=== PATIENT | female | born 1985 | race Caucasian/White ===

== ENCOUNTER 2018-06-09 20:48 | Emergency (ER) | payer MEDICAID, OTHER ==
--- NOTE | 2018-06-09 21:25 | EDPHY ---
General Time Seen by Provider: 06/09/18 21:14 Narrative: CHIEF COMPLAINT: Abdominal pain, rib pain HISTORY OF PRESENT ILLNESS: Patient presents by private vehicle with her friend with complaints of left upper quadrant abdominal pain left lower rib pain. She notes pain over the past 2-3 weeks with worsening of the past 2 days. It is associated with some bloating, itching and increased appetite. She has no nausea. No vomiting. No fever chills. It is worse with palpation of the area and movement. Also worse when she takes a deep breath and described "it clicks when I breathe deep." She has no trauma or injury. No constipation or diarrhea. No bloody stools. No previous incidence of this. She does have a history of hypothyroid, for which she takes [place] Thyroid. 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 She has no other associated complaints or modifying factors. REVIEW OF SYSTEMS: 10 systems were reviewed and negative with the exception of the elements mentioned in the history of present illness. PCP: [facility] SPECIALISTS: None PAST MEDICAL HISTORY: Hypothyroid PAST SURGICAL HISTORY: No surgical history SOCIAL HISTORY: Nonsmoker. Lives independently. Originally from [place]. FAMILY HISTORY: Noncontributory EXAMINATION: Vitals: Triage VS reviewed General Appearance: Alert, no distress. Well appearing. Head: normocephalic, atraumatic Eyes: Pupils equal and round, no conjunctival pallor or injection ENT, Mouth: Mucous membranes moist Neck: Normal inspection, supple, non-tender Respiratory: Lungs are clear to auscultation. No wheezing, rhonchi or crackles. There is tenderness to the left lower costal margin in the mid axillary plain. Cardiovascular: Regular rate and rhythm. No murmur. Gastrointestinal: Abdomen is soft and nondistended. There is mild tenderness in left upper quadrant without tympany, rigidity or guarding. Bowel sounds present all 4 quadrants. No CVA tenderness. Back: non-tender, no bony abnormalities Neurological: A&O, nonfocal, normal gait Skin: Warm and dry, no rash. No lesions to the palms of the hands of the fingernails. Extremities: Nontender, no pedal edema Psychiatric: Mood and affect normal DIFFERENTIAL DIAGNOSES: Including but not limited to hypothyroid, rib sprain, rib fracture, splenomegaly , colitis, diverticulitis, pancreatitis, gastritis MDM: 9:25 p.m. Left lower rib pain and left upper quadrant abdominal pain that is reproducible. It is also worse with inspiration and movement. No chest pain or shortness of breath. No fever. She does take armour thyroid. Her abdominal exam does reveal mild tenderness left upper quadrant but no guarding, tympany rigidity. I have ordered x-rays of the ribs and abdomen. Laboratory studies be obtained. IV has been established. She is in no acute distress vital signs stable. 9:45 p.m. XR read by radiologist as obstipation vs. partial SBO. I have ordered CT scan of the pelvis to delineate. Patient has consented to this. Her laboratory studies are pending. 10:44 p.m. Notified by radiologist Dr. Allen. We discussed the CT abdomen and pelvis findings. 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 10:50 p.m. Case discussed with Dr. Bella. We had a lengthy discussion regarding the CT scan. He reviewed the CT images himself. He recommends 3 things. First he recommends an enema consisting of 1500 mL of soap suds with 2 Fleet's enema. Second, he recommends magnesium citrate by mouth. Third, he recommend Suprep Rx for completion of constipation treatment. He further recommends the patient follow up with a small bowel follow-through in the next week. I presented all these options to the patient and she has declined to have the enema here. She states that she would like to go home and try Fleet's enemas [id number]. We discussed risks, benefits and alternatives and she is willing to assume the risk. She knows that if she goes home to try this with [id number] medication she may fail. She knows that she may after return to the emergency department and that she risks worsening of her scenario. She is comfortable this soon this risk, I do feel she the has the ability to make this decision and she will be discharged in stable condition. SUPERVISION: Patient was independently examined, but I discussed the case with my secondary supervising physician Dr. Ferrara CONSULTATION: General surgery, Dr. Bella by telephone - History Smoking Status: Never smoked - Objective Vital Signs: Initial Vital Signs Heart Rate 64 06/09/18 20:51 Respiratory Rate 18 06/09/18 20:51 O2 Sat (%) 97 06/09/18 20:51 O2 Delivery Mode Room Air Allergies/Adverse Reactions: No Known Allergies Allergy (Unverified 06/09/18 20:50) Home Medications: Medication Instructions Recorded ARMOUR THYROID 06/09/18 Laboratory Results: Laboratory Results 06/09/18 21:00 06/09/18 21:00 Medications Given: Discontinued Medications Sodium Chloride (Ns) 1,000 mls @ 0 mls/hr IV EDNOW ONE; Wide Open PRN Reason: Protocol Stop: 06/09/18 21:50 Last Admin: 06/09/18 21:54 Dose: 1,000 mls Departure - Departure Disposition: Home, Routine, Self-Care Clinical Impression: Obstipation Abdominal pain Qualifiers: Abdominal location: generalized Qualified Code(s): R10.84 - Generalized abdominal pain Condition: Good Instructions: Acute Abdominal Pain (ED), Obstipation (ED) Additional Instructions: 1. Fleet's enemas [id number] x2 2. Magnesium citrate [id number] x1 3. Suprep as prescribed starting tomorrow morning. You will need to get this at a pharmacy. 4. Return to emergency department if your unsuccessful in having a bowel movement. 5. Return to emergency department if he began vomiting or have any worsening abdominal pain or fever 6. Follow up with general surgeon outpatient Referrals: James Schafer MD [Medical Doctor] - As per Instructions Physician,Emergency DepMD viviane [Medical Doctor] - As per Instructions (As directed under discharge instructions)
[2018-06-09 21:33] LABS: PLATELET COUNT 237 10^3/uL (150-400)
[2018-06-09] MEDS ORDERED: NS 1,000 ML IV ONE (21:49)
[2018-06-09] MEDS ORDERED: IOPAMIDOL (ISOVUE-300) 100 ML BTL ONE (21:53)
[2018-06-09 23:28] VITALS: BP 130/92
== END 2018-06-09 23:28 | disposition home or self-care (01) ==
DX: K59.00 Constipation, unspecified (principal); R10.84 Generalized abdominal pain; I87.1 Compression of vein; E86.9 Volume depletion, unspecified; E03.9 Hypothyroidism, unspecified
CPT/HCPCS: Q9967

== ENCOUNTER 2018-07-18 20:51 | Emergency (ER) | payer MEDICAID ==
--- NOTE | 2018-07-18 21:06 | EDPHY ---
H & P Stated Complaint: upper mid abd pain and cramping causing SOB Time Seen by Provider: 07/18/18 21:05 HPI/ROS: HPI CHIEF COMPLAINT: Abdominal pain HISTORY OF PRESENT ILLNESS: 33-year-old female, presents emergency room with epigastric abdominal pain. States rather severe today. It is getting better however she developed pain and describes it as 7/10. It started shortly after she ate. She states around 5:00 p.m. She ate a large amount of knots in a protein bar and this caused her great epigastric discomfort. Associated nausea but no vomiting. States the pain was so bad very crampy coming in waves mainly in her epigastric no take her breath away. Denies chest pain. Main area of discomfort epigastric. No vomiting. No fever. 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 She did follow up with GI on outpatient basis. Due to get an EGD. Nonradiating. Past Medical History: Thyroid disease Past Surgical History: Denies significant surgical history Social History: Denies drugs alcohol tobacco daily Family History: Noncontributory ROS REVIEW OF SYSTEMS: 10 Systems were reviewed and negative with the exception of the elements mentioned in the history of present illness. Exam Constitutional nontoxic no acute distress triage nursing summary reviewed, vital signs reviewed, awake/alert. Eyes normal conjunctivae and sclera, EOMI, PERRLA. HENT normal inspection, atraumatic, moist mucus membranes, no epistaxis, neck supple/ no meningismus, no raccoon eyes. Respiratory clear to auscultation bilaterally, normal breath sounds, no respiratory distress, no wheezing. Cardiovascular rate normal, regular rhythm, no murmur, no edema, distal pulses normal. Gastrointestinal mild tender palpation epigastric reproducible on exam, however no peritoneal signs, no rebound, no guarding, normal bowel sounds, no distension, no pulsatile mass. Genitourinary no CVA tenderness. Musculoskeletal no midline vertebral tenderness, full range of motion, no calf swelling, no tenderness of extremities, no meningismus, good pulses, neurovascularly intact. Skin pink, warm, & dry, no rash, skin atraumatic. Neurologic awake, alert and oriented x 3, AAOx3, moves all 4 extremities equally, motor intact, sensory intact, CN II-XII intact, normal cerebellar, normal vision, normal speech. Psychiatric normal mood/affect. Heme/Lymph/Immune no lymphadenopathy. Differential Diagnosis: Differential diagnosis includes but is not limited to and in no particular order: Bowel obstruction, appendicitis, gallbladder disease, diverticulitis, colitis, enteritis, perforated viscus, gastritis, GERD , esophagitis, urinary tract infection, pyelonephritis, kidney stones Medical Decision Making: Plan for this patient IV establishment IV fluid bolus , Dilaudid for pain control, CT scan abdomen pelvis with IV contrast help delineate her abdominal pain, lactic acid, troponin, basic electrolytes and re- evaluate. Re-evaluation: 2127: Patient is declining the IV Dilaudid. CT scan abdomen pelvis with IV contrast called to me by Dr. Hernandez. No acute inflammatory process mild constipation seen. No free air no free fluid. Additionally possible enteritis fluid-filled distal ileum. Labs reviewed. Labs are normal no high white count, no electrolyte disturbance, urinalysis unremarkable. CT scan results reviewed. 2300 I did go re-evaluate the patient she is feeling much better. She denies any acute pain. States he feels much better would like to go home. P.o. Challenge in progress. She has not any vomiting here. Her CT scan previously showed nutcracker, SMA in aorta with duodenum transverse however the CT scan today did not reveal that. 230 re-evaluation given that the patient is feeling much better without any significant abdominal pain fever vomiting or no ongoing pain and re-examination abdomen is soft nontender the patient would like to go home. She p.o. Challenge well without any discomfort or vomiting. I do recommend she follows up with GI. I do recommend she refrain from eating large amounts of nuts at this time, as this may of caused her pain. Additionally discussed return precautions she understands return emergency room if she develops worsening abdominal pain, fever, vomiting. Follow up with GI. Return if worse. 2326: Patient was able to tolerate p.o. Without any vomiting or abdominal discomfort abdominal pain. She would like to go home. I discussed return precautions with her return emergency room if worsening abdominal pain fever vomiting she is comfortable this plan CT scan results given to the patient. Recommend bland diet over the next 48 hr. And then advance diet slowly. Return if worse. She is comfortable this plan. Source: Patient - Personal History LMP (Females 10-55): 22-28 Days Ago Current Tetanus/Diphtheria Vaccine: Yes Current Tetanus Diphtheria and Acellular Pertussis (TDAP): Yes - Medical/Surgical History Hx Asthma: No Hx Chronic Respiratory Disease: No Hx Diabetes: No Hx Cardiac Disease: No Hx Renal Disease: No Hx Cirrhosis: No Hx Alcoholism: No Hx HIV/AIDS: No Hx Splenectomy or Spleen Trauma: No Other PMH: thyroid, Kryptopyrroluria - Social History Smoking Status: Never smoked Constitutional: Initial Vital Signs Temperature (C) 36.5 C 07/18/18 20:52 Heart Rate 70 07/18/18 20:52 Respiratory Rate 18 07/18/18 20:52 Blood Pressure 112/79 07/18/18 20:52 O2 Sat (%) 99 07/18/18 20:52 O2 Delivery Mode Room Air Allergies/Adverse Reactions: No Known Allergies Allergy (Verified 07/18/18 20:55) Home Medications: Medication Instructions Recorded ARMOUR THYROID 06/09/18 Medical Decision Making - Diagnostics Imaging Results: Imaging Impressions Abdomen CT 07/18/18 21:26 Impression: 1. Increase in fluid distention of the stomach, without definite evidence of obstruction. 2. Fluid distention of the ileum, which can be seen with enteritis but is nonspecific. 3. Moderate stool in the colon, improved. 4. Additional findings as above. Findings discussed with Abhi Ferrara MD 07/18/2018 at 22:23. - Data Points Laboratory Results: Laboratory Results 07/18/18 21:10 07/18/18 21:10 07/18/18 07/18/18 07/18/18 22:30 21:27 21:10 WBC RBC Hgb Hct MCV MCH MCHC RDW Plt Count MPV Neut % (Auto) Lymph % (Auto) Grant % (Auto) Eos % (Auto) Baso % (Auto) Nucleat RBC Rel Count Absolute Neuts (auto) Absolute Lymphs (auto) Absolute Monos (auto) Absolute Eos (auto) Absolute Basos (auto) Absolute Nucleated RBC Immature Gran % Immature Gran # PT INR APTT VBG Lactic Acid Sodium Potassium Chloride Carbon Dioxide Anion Gap BUN Creatinine Estimated GFR Glucose Calcium Total Bilirubin Conjugated Bilirubin Unconjugated Bilirubin AST ALT Alkaline Phosphatase POC Troponin I 0.01 ng/mL ng/mL (0.00-0.08) Total Protein Albumin Lipase Beta HCG, Qual NEGATIVE Urine Color YELLOW Urine Appearance CLEAR Urine pH 7.0 (5.0-7.5) Ur Specific [place] 1.026 (1.002-1.030) Urine Protein NEGATIVE (NEGATIVE) Urine Ketones NEGATIVE (NEGATIVE) Urine Blood NEGATIVE (NEGATIVE) Urine Nitrate NEGATIVE (NEGATIVE) Urine Bilirubin NEGATIVE (NEGATIVE) Urine Urobilinogen NEGATIVE EU EU (0.2-1.0) Ur Leukocyte Esterase NEGATIVE (NEGATIVE) Urine Glucose NEGATIVE (NEGATIVE) Ethyl Alcohol 07/18/18 07/18/18 07/18/18 21:10 21:10 21:10 WBC 7.34 10^3/uL 10^3/uL (3.80-9.50) RBC 4.49 10^6/uL 10^6/uL (4.18-5.33) Hgb 14.3 g/dL g/dL (12.6-16.3) Hct 42.8 % % (38.0-47.0) MCV 95.3 fL fL (81.5-99.8) MCH 31.8 pg pg (27.9-34.1) MCHC 33.4 g/dL g/dL (32.4-36.7) RDW 12.0 % % (11.5-15.2) Plt Count 216 10^3/uL 10^3/uL (150-400) MPV 10.7 fL fL (8.7-11.7) Neut % (Auto) 79.8 % H % (39.3-74.2) Lymph % (Auto) 13.9 % L % (15.0-45.0) Grant % (Auto) 5.4 % % (4.5-13.0) Eos % (Auto) 0.4 % L % (0.6-7.6) Baso % (Auto) 0.4 % % (0.3-1.7) Nucleat RBC Rel Count 0.0 % % (0.0-0.2) Absolute Neuts (auto) 5.85 10^3/uL 10^3/uL (1.70-6.50) Absolute Lymphs (auto) 1.02 10^3/uL 10^3/uL (1.00-3.00) Absolute Monos (auto) 0.40 10^3/uL 10^3/uL (0.30-0.80) Absolute Eos (auto) 0.03 10^3/uL 10^3/uL (0.03-0.40) Absolute Basos (auto) 0.03 10^3/uL 10^3/uL (0.02-0.10) Absolute Nucleated RBC 0.00 10^3/uL 10^3/uL (0-0.01) Immature Gran % 0.1 % % (0.0-1.1) Immature Gran # 0.01 10^3/uL 10^3/uL (0.00-0.10) PT 13.5 SEC SEC (12.0-15.0) INR 1.01 (0.83-1.16) APTT 25.8 SEC SEC (23.0-38.0) VBG Lactic Acid Sodium 138 mEq/L mEq/L (135-145) Potassium 3.7 mEq/L mEq/L (3.5-5.2) Chloride 105 mEq/L mEq/L (97-110) Carbon Dioxide 23 mEq/l mEq/l (22-31) Anion Gap 10 mEq/L mEq/L (6-14) BUN 15 mg/dL mg/dL (7-23) Creatinine 0.9 mg/dL mg/dL (0.6-1.0) Estimated GFR > 60 Glucose 79 mg/dL mg/dL (70-100) Calcium 9.4 mg/dL mg/dL (8.5-10.4) Total Bilirubin 0.5 mg/dL mg/dL (0.1-1.4) Conjugated Bilirubin 0.4 mg/dL mg/dL (0.0-0.5) Unconjugated Bilirubin 0.1 mg/dL mg/dL (0.0-1.1) AST 43 IU/L IU/L (14-46) ALT 51 IU/L IU/L (9-52) Alkaline Phosphatase 96 IU/L IU/L (38-126) POC Troponin I Total Protein 7.5 g/dL g/dL (6.3-8.2) Albumin 4.9 g/dL g/dL (3.5-5.0) Lipase 145 IU/L IU/L (23-300) Beta HCG, Qual Urine Color Urine Appearance Urine pH Ur Specific [place] Urine Protein Urine Ketones Urine Blood Urine Nitrate Urine Bilirubin Urine Urobilinogen Ur Leukocyte Esterase Urine Glucose Ethyl Alcohol < 10 mg/dL mg/dL (0-10) 07/18/18 21:10 WBC RBC Hgb Hct MCV MCH MCHC RDW Plt Count MPV Neut % (Auto) Lymph % (Auto) Grant % (Auto) Eos % (Auto) Baso % (Auto) Nucleat RBC Rel Count Absolute Neuts (auto) Absolute Lymphs (auto) Absolute Monos (auto) Absolute Eos (auto) Absolute Basos (auto) Absolute Nucleated RBC Immature Gran % Immature Gran # PT INR APTT VBG Lactic Acid 2.0 mmol/L mmol/L (0.7-2.1) Sodium Potassium Chloride Carbon Dioxide Anion Gap BUN Creatinine Estimated GFR Glucose Calcium Total Bilirubin Conjugated Bilirubin Unconjugated Bilirubin AST ALT Alkaline Phosphatase POC Troponin I Total Protein Albumin Lipase Beta HCG, Qual Urine Color Urine Appearance Urine pH Ur Specific [place] Urine Protein Urine Ketones Urine Blood Urine Nitrate Urine Bilirubin Urine Urobilinogen Ur Leukocyte Esterase Urine Glucose Ethyl Alcohol Medications Given: Discontinued Medications Hydromorphone HCl (Dilaudid) 1 mg IVP EDNOW ONE Stop: 07/18/18 21:08 Last Admin: 07/18/18 21:17 Dose: Not Given Sodium Chloride (Ns) 1,000 mls @ 0 mls/hr IV EDNOW ONE; Wide Open PRN Reason: Protocol Stop: 07/18/18 21:08 Last Admin: 07/18/18 21:14 Dose: 1,000 mls Ondansetron HCl (Zofran) 4 mg IVP EDNOW ONE Stop: 07/18/18 21:08 Last Admin: 07/18/18 21:17 Dose: Not Given Point of Care Test Results: Chemistry 07/18/18 21:27 POC Troponin I 0.01 ng/mL ng/mL (0.00-0.08) Departure - Departure Disposition: Home, Routine, Self-Care Clinical Impression: Abdominal pain Qualifiers: Abdominal location: epigastric Qualified Code(s): R10.13 - Epigastric pain Condition: Good Instructions: Acute Abdominal Pain (ED) Additional Instructions: 1. [place] diet over the next 24 hr 2. Continue stool softeners as there is some mild constipation seen on her CT scan. 3. Return if worsening abdominal pain fever or vomiting 4. Return if worsening pain 5. Please follow up with your dining room helper. 6. Recommend you get an endoscopy. Referrals: FATEMEH LOVE [Primary Care Provider] - As per Instructions Ethan Narayanan MD [Medical Doctor] - As per Instructions
[2018-07-18] MEDS ORDERED: NS 1,000 ML IV ONE (21:07)
[2018-07-18] MEDS ORDERED: ONDANSETRON 4 MG/2 ML VIAL IVP ONE (21:07)
[2018-07-18] MEDS ORDERED: HYDROmorphONE/DILAUDID 2 MG/ML INJ IVP ONE (21:07)
[2018-07-18 21:25] LABS: PLATELET COUNT 216 10^3/uL (150-400)
[2018-07-18] MEDS ORDERED: IOPAMIDOL (ISOVUE 370) 100 ML BTL IV ONE (21:31)
[2018-07-18 21:34] LABS: INR 1.01 (0.83-1.16); PROTIME(PATIENT) 13.5 SEC (12.0-15.0)
[2018-07-18 23:29] VITALS: BP 117/68
== END 2018-07-18 23:33 | disposition home or self-care (01) ==
DX: R10.13 Epigastric pain (principal); E86.9 Volume depletion, unspecified
CPT/HCPCS: 84484-ER; G0480; J1170; J2405; Q9967

== ENCOUNTER 2018-12-19 18:37 | Emergency (ER) | payer MEDICAID | END 2018-12-19 21:16 | disposition home or self-care (01) ==